=== PATIENT | female | born 1995 | race Caucasian/White ===

== ENCOUNTER 2019-10-18 14:52 | Emergency (ER) | payer MEDICAID, OTHER ==
[~2019-10-18] VITALS: Ht 157.5 cm; Wt 48.0 kg
[2019-10-18] MEDS ORDERED: ACETAMINOPHEN 325MG TABLET ONE (15:20)
[2019-10-18] MEDS ORDERED: ACETAMINOPHEN 325MG TABLET PO STA (15:21)
[2019-10-18] MEDS ORDERED: CEFTRIAXONE 1 G PREMIX 50 ML IV ONE (15:30)
[2019-10-18] MEDS ORDERED: SODIUM CHLORIDE 0.9% 1000ML BAG (SEPSIS BOLUS) IV ONE (15:30)
[2019-10-18 16:03] LABS: CHLORIDE 101 mEq/L (98-107)
[2019-10-18 16:05] LABS: BASOPHILS % 0.2 % (0.0-2.0); HEMATOCRIT. 34.8 % (36.0-48.0); HEMOGLOBIN. 12.1 g/dL (12.0-16.0); LYMPHOCYTES % 13.8 % (20.0-50.0); MEAN CORPUSCULAR HEMOGLOBIN 30.6 pg (28.0-32.0); MEAN CORPUSCULAR VOLUME 87.8 fL (81.0-99.0); MEAN PLATELET VOLUME 9.4 fl (7.4-10.4); MONOCYTES % 12.3 % (2.0-8.0); NEUTROPHILS % 73.7 % (40.0-76.0); PLATELET 217 x1000/uL (130-400); RED BLOOD CELL COUNT 3.96 mill/uL (4.2-5.4); RED CELL DISTRIBUTION WIDTH 11.9 % (11.6-14.6)
[2019-10-18 16:08] LABS: HCG SCREEN NEGATIVE
[2019-10-18 16:17] LABS: INR 1.1; PROTHROMBIN TIME 11.4 sec (9.6-11.0)
[2019-10-18 16:44] LABS: CLARITY URINE CLOUDY (CLEAR); COLOR URINE YELLOW (YELLOW); KETONES URINE 3+ (NEGATIVE); LEUKOCYTE ESTERASE URINE 1+ (NEGATIVE); NITRITE URINE POSITIVE (NEGATIVE); OCCULT BLOOD URINE 3+ (NEGATIVE); PH URINE 5.5 (4.5-8.0); PROTEIN URINE 3+ (NEGATIVE); SPECIFIC GRAVITY URINE 1.021 (1.005-1.030)
[2019-10-18] MEDS ORDERED: KETOROLAC 30MG/ML VIAL IV ONE (17:45)
[2019-10-18 18:07] VITALS: BP 125/80
== END 2019-10-18 18:27 | disposition home or self-care (01) ==
LOC: ER 15:22
DX: N12 Tubulo-interstitial nephritis, not specified as acute or chronic (principal); A41.9 Sepsis, unspecified organism; R11.2 Nausea with vomiting, unspecified; R00.2 Palpitations; R51 Headache; M79.10 Myalgia, unspecified site
CPT/HCPCS: 36415; 71045; 80053; 81003; 83605; 83690; 84145; 84484; 84703; 85025; 85610; 87040; 87077; 87086; 87186; 93005; 96361; 96365; 96375; 99284; J0696; J1885; J7030